=== PATIENT | male | born 1995 | race Caucasian/White ===

== ENCOUNTER 2018-05-01 12:30 | Emergency (ER) | payer BC, SELFPAY ==
[2018-05-01 12:38] VITALS: BP 131/74; PULSE 52; RESP 16; TEMP 36.8; O2SAT 97
--- NOTE | 2018-05-01 13:47 | ED.GENADUL_ITS ---
Discharge Plan Disposition Patient Disposition: HOME Condition: Fair Discharge Details Chief Complaint: GenMedical Clinical Impression: Tick bite Reason For Visit: stiff neck / nausa Primary Care Provider: VALERIE VILLELA ED Provider: Pavithra Hays Discharge Instructions Instructions: Tick Bite (ED) Additional Instructions: Encourage hydration. Tylenol and/or ibuprofen as needed for discomfort. May try melatonin to help his sleep at night. Please follow-up with primary care next week for reevaluation. We will contact you with any positive results regarding your Tick panel. If you develop fever/chills, increased headache, visual change, vomiting, inability to stay hydrated or other new/worsening symptoms please seek care urgently once again Referrals: TIKALOCAL [Primary Care Provider] - Discharge Data Discharge Date/Time-TO BE ENTERED AT DEPARTURE: 05/01/18 14:59 Medical Decision Making MDM Narrative Medical decision making narrative: Patient presents today with chief complaint of change in sleeping habits, neck stiffness, generalized body aches. No fevers or chills. On exam, patient looks otherwise well. He is indicating the lateral aspect of his neck at the base of the skull is area of stiffness. Neuro exam is intact. No nuchal rigidity. Lungs are clear. Regular rate and rhythm of his heart. We will obtain baseline labs including CBC, CMP, tick panel, TSH. Patient has primary care in [place] that she will be able to follow-up with. Laboratory evaluation without significant abnormality. However, tick panel is still pending. Discussed findings with the patient. Encouraged hydration. Advised follow-up with primary care next week for reevaluation. He was given strict return precautions. Advised to contact me with any positive results. Advised that over the result may be he should follow-up with his primary care this week for reevaluation. All his questions and concerns were addressed and he is in agreement this plan HPI - General Adult General Mode of arrival: ambulatory . Date/Time Provider Initiated Documentation: 05/01/18 13:41 . Limitations to Documentation: no limitations . Information obtained by: patient . HPI Narrative: Patient is a 23-year-old male presenting today, completed by significant other, with chief complaint of difficulty sleeping sleeping, body aches. He is concerned this may be associated with exposure to fluorescent light bulb which he broke while trying to change home on 04/21/2018. He is endorsing stiffness in the neck and both knees. He has not noted any rash. States that he has having intermittent mild headaches. No visual change. No nausea or vomiting. Denies any abdominal pain. Denies any chest pain or shortness of breath. No recent cough. He does report that he has had known tick exposures. No bull's-eye rash. Related Data Allergies Allergy/AdvReac Type Severity Reaction Status Date / Time No Known Allergies Allergy Unverified 05/01/18 12:43 General Stated Complaint: GenMedical GIANLUCA: 3 Review of Systems Constitutional Reports as per [facility] Eyes Patient Denies blurry vision and Denies change in vision Cardiovascular Denies chest pain, Denies chest pain at rest, Denies lightheadedness, Denies dyspnea and Denies dyspnea on exertion Respiratory Denies cough, Denies hemoptysis, Denies dyspnea and Denies dyspnea on exertion Gastrointestinal Reports as per [facility] Genitourinary Reports system reviewed and no additional complaints, except as docu Musculoskeletal Reports as per [facility] Integumentary/Breasts Reports as per [facility] Neurologic Reports as per [facility] Social History Smoking/Tobacco Use Status: Never Exam Const General: cooperative, healthy appearing, comfortable, no acute distress, well developed and well groomed Nutritional Appearance: average body habitus Orientation: alert and awake HENAR Head: normal to inspection, normocephalic and atraumatic Ears: hearing grossly normal bilaterally, external ears normal and TM's normal bilaterally Mouth: oral mucosae normal Teeth and gingiva: dentition normal Throat: posterior oropharynx normal Eyes General: appearance normal, both eyes and all related structures Alignment and Position: alignment normal Periorbital: periorbital findings normal Eyelids: eyelids normal Conjunctivae: conjunctivae normal Pupils: PERRL EOM: EOM intact bilaterally Neck Neck: normal visual inspection, full ROM, no lymphadenopathy and no meningeal signs Resp Effort & Inspection: normal respiratory effort, able to speak in complete sentences and no respiratory distress Auscultation: clear to auscultation bilaterally Cardio Rate: regular rate Rhythm: regular rhythm Heart Sounds: S1 normal and S2 normal Back/Spine/Pelvis Back: no CVA tenderness Skin General skin exam: no rashes or lesions noted Lesions: no lesions Rashes: no rashes Trauma: no lacerations or abrasions Wounds: no wounds Neuro General: alert and awake Cranial Nerves: CN's II-XI intact bilaterally Cognition: normal cognition Speech: speech normal Gait: normal gait Motor: muscle tone normal throughout and strength 5/5 throughout Sensory Exam: no sensory deficits noted DTR's: Rt Triceps: 2+, Lt Triceps: 2+, Rt Biceps: 2+, Lt Biceps: 2+, Rt Patellar : 2+, Lt Patellar: 2+, Rt Ankle: 2+ and Lt Ankle: 2+ Coordination: [id number] test normal, [id number] test normal, Romberg test normal and rapid alternating movement UE normal Extrem General: normal to inspection, full ROM and normal capillary refill Psych Appearance: grossly normal and well kempt Mental Status: mental status grossly normal Speech and Movement: speech and movement normal Mood: congruent mood Affect: normal affect Attitude: cooperative Course Vital Signs Temperature 36.8 C 05/01/18 12:38 Pulse 52 L 05/01/18 12:38 Respiratory Rate 16 05/01/18 12:38 Blood Pressure 131/74 05/01/18 12:38 Pulse Oximetry 97 05/01/18 12:38 Temperature 36.8 C 05/01/18 12:38 Pulse 52 L 05/01/18 12:38 Respiratory Rate 16 05/01/18 12:38 Blood Pressure 131/74 05/01/18 12:38 Pulse Oximetry 97 05/01/18 12:38
[2018-05-01 14:22] LABS: Absolute Basophil Count 0.06 k/cumm (0.0-0.2); Absolute Eosinophil Count 0.19 k/cumm (0.0-0.7); Absolute Lymphocyte Count 1.61 k/cumm (1.2-3.4); Absolute Monocyte Count 0.45 k/cumm (0.11-0.7); Absolute Neutrophil Count 2.16 k/cumm (1.2-6.7); Basophils % 1.3; Eosinophils % 4.3; HCT 43.3 % (40.0-50.0); Mean Corp. HGB Concentration 34.6 g/dL (32.0-36.0); Mean Corpuscular Hemoglobin 30.4 pg (27.0-33.0); Mean Corpuscular Volume 87.7 fL (80-95); Mean Platelet Volume 9.4 fL (8.0-11.0); Monocytes % 10.1; Neutrophils % 48.3; Platelet Count 228 x1000/uL (130-400); RBC 4.94 m/cumm (4.50-6.00); RBC Distribution Width 12.9 % (11.8-14.1); White Blood Cell Count 4.47 k/cumm (4.4-10.8)
[2018-05-01 14:42] LABS: ALT 22 U/L (12-78); AST 17 U/L (15-37); Albumin 4.7 g/dL (3.4-5.0); Alkaline Phosphatase 62 U/L (46-116); Anion Gap 5.5 mmol/L (3-11); BUN 20 mg/dL (7-18); Bilirubin, Total 0.7 mg/dL (0.2-1.0); CO2 29.5 mmol/L (21.0-32.0); Calcium 9.6 mg/dL (8.5-10.1); Chloride 102 mmol/L (98-107); Glucose 92 mg/dL (70-100); Potassium 4.1 mmol/L (3.5-5.1); Sodium 137 mmol/L (136-145); TSH (W/Ref FT4) 1.23 uIU/mL (0.358-3.74); Total Protein 8.4 g/dL (6.4-8.2)
[2018-05-01 15:00] VITALS: BP 112/80; PULSE 80; RESP 18; TEMP 37.6; O2SAT 99
[2018-05-04 11:11] LABS: Lyme Ab w Rflx to Lyme Confirm Negative
[2018-05-04 23:01] LABS: Anaplasma phagocytophilum Negative (Negative); B. miyamotoi PCR Negative (Negative); Babesia divergens/MO-1 Negative (Negative); Babesia duncani Negative (Negative); Babesia microti Negative (Negative); Ehrlichia chaffeensis Negative (Negative); Ehrlichia ewingii/canis Negative (Negative); Ehrlichia muris eauclairensis Negative (Negative)
== END 2018-05-01 14:59 | disposition home or self-care (01) ==
PROVIDERS: Emergency Provider Physician Assistant
DX: Z20.818 Contact with and (suspected) exposure to other bacterial communicable diseases (principal); W57.XXXA Bitten or stung by nonvenomous insect and other nonvenomous arthropods, initial encounter
CPT/HCPCS: 80053; 99282; 84443; 85025; 86618; 87798